=== PATIENT | female | born 1935 | race American Indian/Alaskan Native ===

== ENCOUNTER → 2017-08-19 | Outpatient (CLI) | payer OTHER ==
[~2017-08-19] MED LIST: ALBU90OI INH; ALBU90OI6 INH; ALPR.25 PO; Aspirin EC81 MG PO; Bumetanide0.5 MG PO; CALCAVITD PO; Diovan320 MG PO; FURO40 PO; Flonase 0.05% N16 GM; LOVA40 PO; METO25ER PO; MIRT15 PO; Micro-K10 MEQ; Motion Sickness25 M1 PO; POTCHL10ER PO; Percocet 5-3251 EACH PO; Prozac20 MG; STOOL SOFTENER100 MG PO; VALS80 PO; VITAMIN D-32000 UNI1 PO; VITAMIN D35000 UNIT PO; Zofran Odt4 MG SL
[2017-08-19 11:25] LABS: Hematocrit 42.5 % (33.0-51.0); Hemoglobin 13.6 g/dL (11.5-16.0)
[2017-08-19 12:38] LABS: Albumin, Blood 3.4 g/dL (3.4-5.0); Anion Gap 7 mmol/L (6-16); Blood Urea Nitrogen 28 mg/dL (8-24); Bun/Creatinine Ratio 14.9 (12.0-20.0); CO2, Blood 29 mmol/L (21-32); Calcium, Blood 10.3 mg/dL (8.5-10.1); Chloride, Blood 105 mmol/L (98-108); Creatinine, Blood 1.88 mg/dL (0.40-1.00); Glomerular Filtration Rate 27 (60-); Glucose, Blood 116 mg/dL (70-99); Phosphorus, Blood 3.2 mg/dL (2.5-4.9); Potassium, Blood 3.9 mmol/L (3.5-5.5); Sodium, Blood 141 mmol/L (136-145)
== END ==
LOC: OLS 09:25
PROVIDERS: Internal Medicine
DX: D50.9 Iron deficiency anemia, unspecified (principal); D63.1 Anemia in chronic kidney disease; I10 Essential (primary) hypertension
CPT/HCPCS: 36415; 80069; 83970; 85014; 85018

== ENCOUNTER 2017-12-01 14:24 | Emergency (ER) | payer OTHER ==
[~2017-12-01] VITALS: Ht 154.9 cm; Wt 77.1 kg
[~2017-12-01 14:24] MED LIST changes: -Percocet 5-3251 EACH PO
[2017-12-01] MEDS ORDERED: Percocet 5-3251 EACH PO (16:36)
== END 2017-12-01 16:45 | disposition home or self-care (01) ==
LOC: ER 14:24
DX: M47.898 Other spondylosis, sacral and sacrococcygeal region (principal); I10 Essential (primary) hypertension; E78.00 Pure hypercholesterolemia, unspecified; F41.9 Anxiety disorder, unspecified; F17.200 Nicotine dependence, unspecified, uncomplicated; Z79.899 Other long term (current) drug therapy; Z79.82 Long term (current) use of aspirin; Z87.442 Personal history of urinary calculi
CPT/HCPCS: 73502; 99283

== ENCOUNTER → 2018-08-01 | Outpatient (CLI) | payer OTHER ==
[~2018-08-01] MED LIST changes: +Percocet 5-3251 EACH PO
== END | disposition home or self-care (01) ==
LOC: LAB SHORT 12:21 → LAB 12:21
DX: D50.9 Iron deficiency anemia, unspecified (principal)
CPT/HCPCS: 87015; 87045; 87046; 87205; 87899

== ENCOUNTER → 2018-08-23 | Outpatient (CLI) | payer OTHER ==
[2018-08-26 13:52] LABS: Stool Occult Bld Immuno 1 Negative (NEGATIVE)
== END | disposition home or self-care (01) ==
LOC: LAB SHORT 20:30 → LAB 20:30
PROVIDERS: Internal Medicine Hematology & Oncology
DX: D50.9 Iron deficiency anemia, unspecified (principal)
CPT/HCPCS: 82274

== ENCOUNTER → 2019-06-10 | Outpatient (CLI) | payer OTHER | END | disposition home or self-care (01) | LOC: LAB EV 12:00 → LAB SHORT 12:00 | DX: T14.8XXA Other injury of unspecified body region, initial encounter (principal) | CPT/HCPCS: 87081 ==

== ENCOUNTER 2019-09-25 02:09 | Day surgery (SDC) | payer OTHER ==
[2019-09-24 10:28] LABS: BASOPHILS ABSOLUTE AUTO 0.11 K/mm3 (0.00-0.23); BASOPHILS PERCENT AUTO 1 % (0-2); EOSINOPHILS ABSOLUTE AUTO 0.19 K/mm3 (0.00-0.68); EOSINOPHILS PERCENT AUTO 2 % (0-6); Hematocrit 24.6 % (33.0-51.0); IMMATURE GRAN ABSOLUTE AUTO 0.07 K/mm3 (0.00-0.10); IMMATURE GRAN PERCENT AUTO 1 % (0-1); LYMPHOCYTES PERCENT AUTO 15 % (21-46); MONOCYTES ABSOLUTE AUTO 0.94 K/mm3 (0.16-1.47); MONOCYTES PERCENT AUTO 8 % (4-13); Mean Corpuscular HGB Conc 28.5 g/dL (31.5-36.5); Mean Corpuscular Volume 91 fL (80-100); Mean Platelet Volume 9.5 fL (9.1-12.4); NEUTROPHILS ABSOLUTE AUTO 8.23 K/mm3 (1.96-9.15); NEUTROPHILS PERCENT AUTO 73 % (41-73); Platelet Count 327 K/mm3 (150-400); RDW Coefficient Variation 21.4 % (11.7-14.2); RDW Standard Deviation 57.7 fL (35.1-46.3); Red Blood Cell Count 2.69 M/mm3 (3.80-5.20); White Blood Cell Count 11.24 K/mm3 (4.00-11.30)
[~2019-09-25 02:09] MED LIST changes: +ACET500 PO; +ACTIFED; +Banophen25 MG PO; +FURO40; +IRON INFUSIONS; +LINZESS290 MCG PO; +MYLANTA TONIGH355 ML PO; +POTASSIUM CHLO10 MEQ PO; +Pepto-Bismol262 MG PO; +SERT100 PO; +TOPROL XL50 M1 PO; +VITAMIN B; +VITAMIN D35000 UNI2 PO; +Ventolin/Prove6.7 GM INH
== END 2019-09-25 12:42 | disposition home or self-care (01) ==
LOC: ATC 02:09 → EDSTATUS 07:30 → ATC 12:42
PROVIDERS: Internal Medicine Hematology & Oncology
DX: C91.11 Chronic lymphocytic leukemia of B-cell type in remission (principal); D63.0 Anemia in neoplastic disease; I10 Essential (primary) hypertension; J44.9 Chronic obstructive pulmonary disease, unspecified; F17.210 Nicotine dependence, cigarettes, uncomplicated; Z79.82 Long term (current) use of aspirin; Z79.899 Other long term (current) drug therapy; Z88.5 Allergy status to narcotic agent; Z88.6 Allergy status to analgesic agent
CPT/HCPCS: 36430; 85025; 86850; 86900; 86901; 86923; J7050; P9016

== ENCOUNTER 2019-12-17 13:44 | Day surgery (SDC) | payer OTHER | END 2019-12-17 18:12 | disposition home or self-care (01) | LOC: ATC 13:44 → EDSTATUS 13:45 → ATC 18:12 | DX: D50.9 Iron deficiency anemia, unspecified (principal); C91.10 Chronic lymphocytic leukemia of B-cell type not having achieved remission; D47.2 Monoclonal gammopathy; I10 Essential (primary) hypertension; J44.9 Chronic obstructive pulmonary disease, unspecified; F17.210 Nicotine dependence, cigarettes, uncomplicated; Z79.82 Long term (current) use of aspirin; Z79.899 Other long term (current) drug therapy; Z88.5 Allergy status to narcotic agent | CPT/HCPCS: 36430; 86850; 86900; 86901; 86923; J7050; P9016 ==

== ENCOUNTER → 2019-12-31 | Outpatient (CLI) | payer OTHER ==
[2019-12-31 14:14] LABS: BASOPHILS ABSOLUTE AUTO 0.13 K/mm3 (0.00-0.23); BASOPHILS PERCENT AUTO 2 % (0-2); EOSINOPHILS ABSOLUTE AUTO 0.17 K/mm3 (0.00-0.68); EOSINOPHILS PERCENT AUTO 2 % (0-6); Hematocrit 24.9 % (33.0-51.0); Hemoglobin 6.9 g/dL (11.5-16.0); IMMATURE GRAN ABSOLUTE AUTO 0.04 K/mm3 (0.00-0.10); IMMATURE GRAN PERCENT AUTO 1 % (0-1); LYMPHOCYTES ABSOLUTE AUTO 1.35 K/mm3 (0.84-5.20); LYMPHOCYTES PERCENT AUTO 16 % (21-46); MONOCYTES ABSOLUTE AUTO 0.84 K/mm3 (0.16-1.47); MONOCYTES PERCENT AUTO 10 % (4-13); Mean Corpuscular HGB 27.3 pg (26.0-34.0); Mean Corpuscular HGB Conc 27.7 g/dL (31.5-36.5); Mean Corpuscular Volume 98 fL (80-100); Mean Platelet Volume 10.2 fL (9.1-12.4); NEUTROPHILS ABSOLUTE AUTO 6.15 K/mm3 (1.96-9.15); NEUTROPHILS PERCENT AUTO 71 % (41-73); Platelet Count 322 K/mm3 (150-400); RDW Coefficient Variation 23.1 % (11.7-14.2); RDW Standard Deviation 81.8 fL (35.1-46.3); Red Blood Cell Count 2.53 M/mm3 (3.80-5.20); White Blood Cell Count 8.68 K/mm3 (4.00-11.30)
== END | disposition home or self-care (01) ==
LOC: LAB 10:56 → LAB SHORT 10:56
PROVIDERS: Registered Nurse Oncology
DX: D50.9 Iron deficiency anemia, unspecified (principal)
CPT/HCPCS: 85025

== ENCOUNTER 2020-04-06 08:38 | Day surgery (SDC) | payer OTHER ==
[~2020-04-06] VITALS: Ht 157.5 cm; Wt 70.3 kg
[~2020-04-06 08:38] MED LIST changes: +POTCHL20ER PO
--- NOTE | 2020-04-06 12:40 | NUR ---
04/06/20 1240 Liya Cullen LATE ENTRY PATIENT REFUSED MULTIPLE OFFERS OF PO FLUIDS.
== END 2020-04-06 11:56 | disposition home or self-care (01) ==
LOC: ORSCSDS 08:38
PROVIDERS: Internal Medicine Gastroenterology
PROC: 0DB78ZX Excision of Stomach, Pylorus, Via Natural or Artificial Opening Endoscopic, Diagnostic (ICD-10-PCS; principal; 2020-04-06 10:00)
PROC: 0D5E8ZZ Destruction of Large Intestine, Via Natural or Artificial Opening Endoscopic (ICD-10-PCS; principal; 2020-04-06 10:00)
PROC: 0D568ZZ Destruction of Stomach, Via Natural or Artificial Opening Endoscopic (ICD-10-PCS; principal; 2020-04-06 10:00)
PROC: 0DBM8ZX Excision of Descending Colon, Via Natural or Artificial Opening Endoscopic, Diagnostic (ICD-10-PCS; principal; 2020-04-06 10:00)
PROC: 0DBN8ZX Excision of Sigmoid Colon, Via Natural or Artificial Opening Endoscopic, Diagnostic (ICD-10-PCS; principal; 2020-04-06 10:00)
DX: D50.9 Iron deficiency anemia, unspecified (principal); K59.00 Constipation, unspecified; D12.4 Benign neoplasm of descending colon; D12.5 Benign neoplasm of sigmoid colon; K57.30 Diverticulosis of large intestine without perforation or abscess without bleeding; K29.70 Gastritis, unspecified, without bleeding; K64.8 Other hemorrhoids; R13.14 Dysphagia, pharyngoesophageal phase; K55.20 Angiodysplasia of colon without hemorrhage; I10 Essential (primary) hypertension; I25.10 Atherosclerotic heart disease of native coronary artery without angina pectoris; E78.5 Hyperlipidemia, unspecified; I48.91 Unspecified atrial fibrillation; J44.9 Chronic obstructive pulmonary disease, unspecified; G47.33 Obstructive sleep apnea (adult) (pediatric); N18.3 Chronic kidney disease, stage 3 (moderate); R73.03 Prediabetes; Z79.899 Other long term (current) drug therapy; Z79.82 Long term (current) use of aspirin; Z95.0 Presence of cardiac pacemaker
CPT/HCPCS: 87081; 88305; J2704; J7120

== ENCOUNTER → 2020-05-01 | Outpatient (CLI) | payer OTHER ==
[~2020-05-01] MED LIST changes: +OMEP20ER PO; +SALM50IP INH
[2020-05-03 14:00] LABS: Stool Occult Bld Immuno 1 Positive (NEGATIVE); Stool Occult Bld Immuno 2 Positive (NEGATIVE)
== END | disposition home or self-care (01) ==
LOC: LAB SHORT 09:00 → LAB EV 09:00
PROVIDERS: Internal Medicine Gastroenterology
DX: D50.9 Iron deficiency anemia, unspecified (principal)
CPT/HCPCS: 82274

== ENCOUNTER 2020-05-05 10:28 | Day surgery (SDC) | payer OTHER ==
[~2020-05-05] VITALS: Ht 154.9 cm; Wt 76.9 kg
[~2020-05-05 10:28] MED LIST changes: -OMEP20ER PO; -SALM50IP INH
[2020-05-05] MEDS ORDERED: OMEP20ER PO (13:08)
--- NOTE | 2020-05-05 17:36 | NUR ---
PT RECEIVED 2 UNITS PRBC, TOLERATED WELL, NO REACTION. DISCHARGED VIA W/C WITH DAUGHTER.
[2020-05-06] MEDS ORDERED: SALM50IP INH (11:34)
== END 2020-05-05 17:39 | disposition home or self-care (01) ==
LOC: TRN 10:28 → MEDS 10:28 → TRN 17:39
PROVIDERS: Internal Medicine Gastroenterology
DX: D50.9 Iron deficiency anemia, unspecified (principal); J44.9 Chronic obstructive pulmonary disease, unspecified; F17.210 Nicotine dependence, cigarettes, uncomplicated; Z20.828 Contact with and (suspected) exposure to other viral communicable diseases; Z79.899 Other long term (current) drug therapy
CPT/HCPCS: 36415; 36430; 86850; 86900; 86901; 86923; J2704; J7050; J7120; P9016; U0002

== ENCOUNTER 2020-05-06 11:08 | Day surgery (SDC) | payer OTHER ==
[~2020-05-06] VITALS: Ht 154.9 cm; Wt 76.9 kg
[~2020-05-06 11:08] MED LIST changes: +OMEP20ER PO
[2020-05-06] MEDS ORDERED: SALM50IP INH (11:34)
--- NOTE | 2020-05-06 12:14 | NUR ---
Ambulatory in Day Surgery. History, Chart, Medications and Allergies reviewed before start of procedure.Lungs clear T/O to Auscultation. Patient confirms NPO status and agrees with scheduled surgery. Pre-Op teaching done. Pt verbalizes understanding. Patient States Post-Procedure ride home has been arranged.
--- NOTE | 2020-05-06 12:20 | NUR ---
05/06/20 1220 LYNSEY POPE History, Chart, Medications and Allergies reviewed before start of procedure. 3-LEAD EKG REVIEWED WITH PHYSICIAN PRIOR TO START OF PROCEDURE. O2 VIA N/C INTACT THROUGHOUT SEDATION/PROCEDURE. MONITOR INTACT WITH CONTINUOUS PULSE OXIMETRY AND INTERMITTENT BP. MAC WITH DR. SHAY.
--- NOTE | 2020-05-06 13:03 | NUR ---
EXECUTIVE RELATIONS SPECIALIST DOWN TO DRAW BLOOD. DR. ADRIAN AT BEDSIDE TALKING WITH PT AND FAMILY.
== END 2020-05-06 13:16 | disposition home or self-care (01) ==
LOC: ORSCMMR 11:08 → ORD 11:08 → ORSCMMR 11:09 → ORD 13:16
PROVIDERS: Internal Medicine Gastroenterology
PROC: 0W3P8ZZ Control Bleeding in Gastrointestinal Tract, Via Natural or Artificial Opening Endoscopic (ICD-10-PCS; principal; 2020-05-06 09:30)
DX: K31.811 Angiodysplasia of stomach and duodenum with bleeding (principal); D50.9 Iron deficiency anemia, unspecified; J44.9 Chronic obstructive pulmonary disease, unspecified; N18.9 Chronic kidney disease, unspecified; I25.10 Atherosclerotic heart disease of native coronary artery without angina pectoris; Z95.0 Presence of cardiac pacemaker; F17.210 Nicotine dependence, cigarettes, uncomplicated; Z79.899 Other long term (current) drug therapy
CPT/HCPCS: 36415; 85014; 93005; 93010; J2704; J7120

== ENCOUNTER 2020-08-09 09:02 | Day surgery (SDC) | payer OTHER ==
[2020-08-08 13:46] LABS: BASOPHILS ABSOLUTE AUTO 0.08 K/mm3 (0.00-0.23); BASOPHILS PERCENT AUTO 1 % (0-2); EOSINOPHILS ABSOLUTE AUTO 0.14 K/mm3 (0.00-0.68); EOSINOPHILS PERCENT AUTO 2 % (0-6); Hematocrit 23.6 % (33.0-51.0); Hemoglobin 6.9 g/dL (11.5-16.0); IMMATURE GRAN ABSOLUTE AUTO 0.05 K/mm3 (0.00-0.10); IMMATURE GRAN PERCENT AUTO 1 % (0-1); LYMPHOCYTES ABSOLUTE AUTO 1.05 K/mm3 (0.84-5.20); LYMPHOCYTES PERCENT AUTO 12 % (21-46); MONOCYTES ABSOLUTE AUTO 0.78 K/mm3 (0.16-1.47); MONOCYTES PERCENT AUTO 9 % (4-13); Mean Corpuscular HGB 26.2 pg (26.0-34.0); Mean Corpuscular HGB Conc 29.2 g/dL (31.5-36.5); Mean Corpuscular Volume 90 fL (80-100); Mean Platelet Volume 10.1 fL (9.1-12.4); NEUTROPHILS ABSOLUTE AUTO 6.69 K/mm3 (1.96-9.15); NEUTROPHILS PERCENT AUTO 76 % (41-73); NRBC ABSOLUTE 0.02 K/mm3 (0.00-0.02); NRBC Auto 0.2 /100 WBC (0.0-0.2); Platelet Count 274 K/mm3 (150-400); RDW Coefficient Variation 16.4 % (11.7-14.2); RDW Standard Deviation 53.5 fL (35.1-46.3); Red Blood Cell Count 2.63 M/mm3 (3.80-5.20); White Blood Cell Count 8.79 K/mm3 (4.00-11.30)
[2020-08-08 13:55] LABS: Percent Saturation 3.1 % (15.0-50.0)
[~2020-08-09 09:02] MED LIST changes: +SALM50IP INH
[2020-08-09] MEDS ORDERED: OMEP20ER PO (09:34)
--- NOTE | 2020-08-09 11:56 | NUR ---
PT WITH EXPIRTORY WHEEZES AFTER TRANSFUSION. CLEARED WITH COUGH. PT HAS COPD, DENIES SOB. O2 SAT 100% ON RA. ADVISED TO SEEK MEDICAL HELP IF SHE DEVELOPES SOB.
== END 2020-08-09 11:45 | disposition home or self-care (01) ==
LOC: ATC 09:02 → EDSTATUS 08-03 11:15 → LAB FUT 08-03 11:15
PROVIDERS: Registered Nurse Oncology
PROC: 30233N1 Transfusion of Nonautologous Red Blood Cells into Peripheral Vein, Percutaneous Approach (ICD-10-PCS; principal; 2020-08-09)
DX: C91.11 Chronic lymphocytic leukemia of B-cell type in remission (principal); D50.9 Iron deficiency anemia, unspecified; C50.811 Malignant neoplasm of overlapping sites of right female breast; D47.2 Monoclonal gammopathy; J44.9 Chronic obstructive pulmonary disease, unspecified; I10 Essential (primary) hypertension; F17.200 Nicotine dependence, unspecified, uncomplicated; Z79.82 Long term (current) use of aspirin; Z79.899 Other long term (current) drug therapy; Z88.5 Allergy status to narcotic agent; Z79.51 Long term (current) use of inhaled steroids; Z20.828 Contact with and (suspected) exposure to other viral communicable diseases
CPT/HCPCS: 36415; 36430; 82728; 83540; 83550; 85025; 86850; 86900; 86901; 86923; J7050; P9016

== ENCOUNTER 2021-01-19 13:51 | Emergency (ER) | payer MEDICARE ==
[~2021-01-19] VITALS: Ht 157.5 cm; Wt 71.2 kg
[2021-01-19 14:40] LABS: PCO2 Arterial 45.4 mmHg (35-45); PO2 Arterial 66.1 mmHg (80-100); pH Blood Arterial 7.34 (7.35-7.45)
== END 2021-01-19 16:21 | disposition home or self-care (01) ==
LOC: ER 13:51
PROVIDERS: Physician Assistant
DX: T59.811A Toxic effect of smoke, accidental (unintentional), initial encounter (principal); I10 Essential (primary) hypertension; E78.5 Hyperlipidemia, unspecified; F17.200 Nicotine dependence, unspecified, uncomplicated; Z79.899 Other long term (current) drug therapy
CPT/HCPCS: 36415; 36600; 71045; 82375; 82803; 93005; 93010; 99284-25

== ENCOUNTER 2021-03-08 12:29 | Emergency (ER) | payer MEDICARE ==
[~2021-03-08] VITALS: Ht 154.9 cm; Wt 70.3 kg
[2021-03-08 13:00] LABS: BASOPHILS ABSOLUTE AUTO 0.08 K/mm3 (0.00-0.23); BASOPHILS PERCENT AUTO 1 % (0-2); EOSINOPHILS ABSOLUTE AUTO 0.17 K/mm3 (0.00-0.68); EOSINOPHILS PERCENT AUTO 2 % (0-6); Hematocrit 27.8 % (33.0-51.0); Hemoglobin 8.3 g/dL (11.5-16.0); IMMATURE GRAN PERCENT AUTO 1 % (0-1); LYMPHOCYTES ABSOLUTE AUTO 0.79 K/mm3 (0.84-5.20); LYMPHOCYTES PERCENT AUTO 10 % (21-46); MONOCYTES PERCENT AUTO 9 % (4-13); Mean Corpuscular HGB 26.3 pg (26.0-34.0); Mean Corpuscular HGB Conc 29.9 g/dL (31.5-36.5); Mean Corpuscular Volume 88 fL (80-100); Mean Platelet Volume 9.2 fL (9.1-12.4); NEUTROPHILS PERCENT AUTO 77 % (41-73); Platelet Count 306 K/mm3 (150-400); RDW Coefficient Variation 17.1 % (11.7-14.2); RDW Standard Deviation 54.6 fL (35.1-46.3); Red Blood Cell Count 3.15 M/mm3 (3.80-5.20); White Blood Cell Count 7.94 K/mm3 (4.00-11.30)
[2021-03-08 13:19] LABS: Albumin, Blood 3.3 g/dL (3.4-5.0); Albumin/Globulin Ratio 0.8 (0.8-1.8); Bilirubin, Total 0.4 mg/dL (0.1-1.0); Bun/Creatinine Ratio 15.7 (12.0-20.0); Calcium, Blood 9.2 mg/dL (8.5-10.1); Creatinine, Blood 2.35 mg/dL (0.40-1.00); Globulin, Blood 4.2 g/dL (2.2-4.0); Potassium, Blood 4.2 mmol/L (3.5-5.5); Total Protein, Blood 7.5 g/dL (6.4-8.2)
[2021-03-08 15:09] LABS: Source, Urine Clean Catch
[2021-03-08 15:14] LABS: Bilirubin, Urine Neg (Neg); Blood, Urine Neg (Neg); Color, Urine Yellow (P-Yellow); Glucose Qualitative, Urine Neg (Neg); Ketones, Urine Neg (Neg); Leukocyte Esterase, Urine Neg (Neg); Nitrite, Urine Neg (Neg); Protein, Urine Neg (Neg); Specific Gravity, Urine 1.015 (1.003-1.022); Urobilinogen, Urine NORM (Normal)
[2021-03-08 15:27] LABS: Appearance, Urine Clear (Clear)
== END 2021-03-08 16:25 | disposition left against medical advice (07) ==
LOC: ER 12:29
PROVIDERS: Emergency Medicine
DX: R10.9 Unspecified abdominal pain (principal); Z53.21 Procedure and treatment not carried out due to patient leaving prior to being seen by health care provider
CPT/HCPCS: 36415; 80053; 81003; 85025

== ENCOUNTER 2021-03-20 21:14 | Emergency (ER) | payer MEDICARE ==
[~2021-03-20] VITALS: Ht 154.9 cm; Wt 70.3 kg
[2021-03-20 22:34] LABS: BASOPHILS ABSOLUTE AUTO 0.07 K/mm3 (0.00-0.23); BASOPHILS PERCENT AUTO 1 % (0-2); EOSINOPHILS ABSOLUTE AUTO 0.08 K/mm3 (0.00-0.68); EOSINOPHILS PERCENT AUTO 1 % (0-6); Hematocrit 33.7 % (33.0-51.0); Hemoglobin 10.2 g/dL (11.5-16.0); IMMATURE GRAN ABSOLUTE AUTO 0.02 K/mm3 (0.00-0.10); IMMATURE GRAN PERCENT AUTO 0 % (0-1); LYMPHOCYTES ABSOLUTE AUTO 0.97 K/mm3 (0.84-5.20); LYMPHOCYTES PERCENT AUTO 16 % (21-46); MONOCYTES ABSOLUTE AUTO 0.75 K/mm3 (0.16-1.47); MONOCYTES PERCENT AUTO 12 % (4-13); Mean Corpuscular HGB 27.3 pg (26.0-34.0); Mean Corpuscular HGB Conc 30.3 g/dL (31.5-36.5); Mean Corpuscular Volume 90 fL (80-100); Mean Platelet Volume 10.1 fL (9.1-12.4); NEUTROPHILS PERCENT AUTO 70 % (41-73); Platelet Count 293 K/mm3 (150-400); RDW Coefficient Variation 19.9 % (11.7-14.2); RDW Standard Deviation 63.8 fL (35.1-46.3); Red Blood Cell Count 3.74 M/mm3 (3.80-5.20); White Blood Cell Count 6.19 K/mm3 (4.00-11.30)
[2021-03-20 22:54] LABS: Albumin, Blood 3.3 g/dL (3.4-5.0); Albumin/Globulin Ratio 0.8 (0.8-1.8); Bilirubin, Total 0.4 mg/dL (0.1-1.0); Bun/Creatinine Ratio 17.6 (12.0-20.0); Calcium, Blood 9.4 mg/dL (8.5-10.1); Creatinine, Blood 2.21 mg/dL (0.40-1.00); Globulin, Blood 4.3 g/dL (2.2-4.0); Potassium, Blood 4.2 mmol/L (3.5-5.5); Total Protein, Blood 7.6 g/dL (6.4-8.2)
[2021-03-21 00:20] LABS: Source, Urine Clean Catch
[2021-03-21 00:30] LABS: Bilirubin, Urine Neg (Neg); Blood, Urine Neg (Neg); Glucose Qualitative, Urine Neg (Neg); Ketones, Urine Neg (Neg); Leukocyte Esterase, Urine Neg (Neg); Nitrite, Urine Neg (Neg); Protein, Urine 1+ (Neg); Specific Gravity, Urine 1.015 (1.003-1.022); Urobilinogen, Urine NORM (Normal)
[2021-03-21 00:32] LABS: Appearance, Urine Clear (Clear); Color, Urine Yellow (P-Yellow)
[2021-03-21] MEDS ORDERED: CYCL10 PO (02:25)
== END 2021-03-21 03:14 | disposition home or self-care (01) ==
LOC: ER 21:14
PROVIDERS: Physician Assistant
DX: M54.16 Radiculopathy, lumbar region (principal); E86.0 Dehydration; F17.200 Nicotine dependence, unspecified, uncomplicated; I10 Essential (primary) hypertension; R11.0 Nausea; R30.0 Dysuria; Z95.1 Presence of aortocoronary bypass graft; Z79.899 Other long term (current) drug therapy; Z79.82 Long term (current) use of aspirin
CPT/HCPCS: 74176; 80053; 83690; 85025; 93005; 93010; 96374; 96375; 99284-25; A9270; J1885; J2270; J2405; J7030; P9612

== ENCOUNTER 2021-08-18 11:16 | Inpatient (IN) | payer MEDICARE ==
[~2021-08-18] VITALS: Ht 157.5 cm; Wt 62.2 kg
[~2021-08-18 11:16] MED LIST changes: +CYCL10 PO
[2021-08-18 12:27] LABS: BASOPHILS ABSOLUTE AUTO 0.04 K/mm3 (0.00-0.23); BASOPHILS PERCENT AUTO 1 % (0-2); EOSINOPHILS ABSOLUTE AUTO 0.01 K/mm3 (0.00-0.68); EOSINOPHILS PERCENT AUTO 0 % (0-6); Hematocrit 38.3 % (33.0-51.0); Hemoglobin 11.5 g/dL (11.5-16.0); IMMATURE GRAN ABSOLUTE AUTO 0.03 K/mm3 (0.00-0.10); IMMATURE GRAN PERCENT AUTO 0 % (0-1); LYMPHOCYTES PERCENT AUTO 10 % (21-46); MONOCYTES ABSOLUTE AUTO 0.78 K/mm3 (0.16-1.47); MONOCYTES PERCENT AUTO 11 % (4-13); Mean Corpuscular HGB 27.2 pg (26.0-34.0); Mean Corpuscular Volume 91 fL (80-100); Mean Platelet Volume 11.3 fL (9.1-12.4); NEUTROPHILS ABSOLUTE AUTO 5.72 K/mm3 (1.96-9.15); NEUTROPHILS PERCENT AUTO 79 % (41-73); NRBC ABSOLUTE 0.02 K/mm3 (0.00-0.02); NRBC Auto 0.3 /100 WBC (0.0-0.2); Platelet Count 180 K/mm3 (150-400); RDW Coefficient Variation 15.9 % (11.7-14.2); RDW Standard Deviation 51.8 fL (35.1-46.3); Red Blood Cell Count 4.23 M/mm3 (3.80-5.20); White Blood Cell Count 7.28 K/mm3 (4.00-11.30)
[2021-08-18 12:49] LABS: Albumin/Globulin Ratio 0.8 (0.8-1.8); Bilirubin, Total 0.9 mg/dL (0.1-1.0); Bun/Creatinine Ratio 16.9 (12.0-20.0); Calcium, Blood 9.1 mg/dL (8.5-10.1); Creatinine, Blood 1.66 mg/dL (0.40-1.00); Potassium, Blood 3.4 mmol/L (3.5-5.5); Troponin I 0.166 ng/mL (0.000-0.040)
[2021-08-18] MEDS ORDERED: GUAI600T33 PO (14:30)
[2021-08-18 14:55] LABS: Source, Urine Clean Catch
[2021-08-18 15:04] LABS: Bilirubin, Urine Neg (Neg); Blood, Urine Neg (Neg); Color, Urine Amber (P-Yellow); Glucose Qualitative, Urine Neg (Neg); Ketones, Urine Neg (Neg); Leukocyte Esterase, Urine 1+ (Neg); Nitrite, Urine Neg (Neg); Protein, Urine 2+ (Neg); Urobilinogen, Urine 1+ (Normal)
[2021-08-18 15:26] LABS: Appearance, Urine Hazy (Clear)
[2021-08-18 15:27] LABS: Amorphous Mod (0-Heavy); Bacteria Mod /hpf; Red Blood Cells, Urine Not Seen /hpf (0-2); Squamous Epithelial Cells Rare /hpf (Few)
[2021-08-18 21:24] LABS: Source, Urine Catheter
[2021-08-18 21:28] LABS: Bilirubin, Urine Neg (Neg); Blood, Urine Neg (Neg); Glucose Qualitative, Urine Neg (Neg); Ketones, Urine Neg (Neg); Leukocyte Esterase, Urine Neg (Neg); Nitrite, Urine Neg (Neg); Protein, Urine Neg (Neg); Specific Gravity, Urine 1.015 (1.003-1.022); Urobilinogen, Urine NORM (Normal)
[2021-08-18 21:36] LABS: Appearance, Urine Clear (Clear); Color, Urine Yellow (P-Yellow)
[2021-08-19 09:30] LABS: International Normalized Ratio 1.15
[2021-08-19 09:40] LABS: Influenza A, PCR NEGATIVE (NEGATIVE); Influenza B, PCR NEGATIVE (NEGATIVE); Resp Syncytial Virus, PCR NEGATIVE (NEGATIVE); SARS-Cov-2 (COVID-19) PCR, MMC NEGATIVE (NEGATIVE)
[2021-08-19 15:28] LABS: Automated BF WBC Count 0.051 K/mm3 (0-999); Body Fluid WBC Count 51 /mm3 (0-999)
[2021-08-19 15:40] LABS: Protein, Body Fluid 1.9 g/dL
[2021-08-19 16:09] LABS: Appearance, Body Fluid Clear (Clear); Color, Body Fluid L Yellow (None-Yellow)
[2021-08-19 16:38] LABS: RBC Count, Body Fluid 79 /mm3 (0-0)
--- NOTE | 2021-08-19 17:01 | NUR ---
NO ACUTE CHANGES. PT IS AOX4 AND COOPERATIVE OF CARE. PT HAS BEEN VERY TIRED AND SLEEPS A LOT. PT ABLE TO GET UP AND WALK WITH GAITBELT AND WALKER WITH ONE PERSON ASSIST. DOMINGO IS PAITENT AND RUNNING. NO DISTRESS NOTEDD AT THIS TIME WILL CONTINUE TO MONITOR.
[2021-08-19 17:13] LABS: Total Cell Count, Body Fluid 100
[2021-08-20 03:39] LABS: BASOPHILS ABSOLUTE AUTO 0.04 K/mm3 (0.00-0.23); BASOPHILS PERCENT AUTO 1 % (0-2); EOSINOPHILS ABSOLUTE AUTO 0.03 K/mm3 (0.00-0.68); EOSINOPHILS PERCENT AUTO 0 % (0-6); Hematocrit 37.5 % (33.0-51.0); Hemoglobin 11.3 g/dL (11.5-16.0); IMMATURE GRAN ABSOLUTE AUTO 0.02 K/mm3 (0.00-0.10); IMMATURE GRAN PERCENT AUTO 0 % (0-1); LYMPHOCYTES ABSOLUTE AUTO 0.62 K/mm3 (0.84-5.20); LYMPHOCYTES PERCENT AUTO 8 % (21-46); MONOCYTES PERCENT AUTO 11 % (4-13); Mean Corpuscular HGB 27.3 pg (26.0-34.0); Mean Corpuscular HGB Conc 30.1 g/dL (31.5-36.5); Mean Corpuscular Volume 91 fL (80-100); Mean Platelet Volume 10.2 fL (9.1-12.4); NEUTROPHILS ABSOLUTE AUTO 6.27 K/mm3 (1.96-9.15); NEUTROPHILS PERCENT AUTO 80 % (41-73); Platelet Count 157 K/mm3 (150-400); RDW Standard Deviation 53.4 fL (35.1-46.3); Red Blood Cell Count 4.14 M/mm3 (3.80-5.20); White Blood Cell Count 7.88 K/mm3 (4.00-11.30)
[2021-08-20 03:55] LABS: Bun/Creatinine Ratio 21.5 (12.0-20.0); Calcium, Blood 8.7 mg/dL (8.5-10.1); Creatinine, Blood 1.44 mg/dL (0.40-1.00); Potassium, Blood 2.9 mmol/L (3.5-5.5)
--- NOTE | 2021-08-20 06:40 | NUR ---
PT IS ALERT TO SELF. VERY [place]. LEGALLY BLIND. THROUGH THE NIGHT PULLING LINES; TELE LEAD AND STABELIZER OF DOMINGO. DENIES PAIN. TELE: PACED 85
--- NOTE | 2021-08-20 17:05 | NUR ---
Met with pt's dtr, Renetta, and discussed hospice option. Renetta reports that they would like to transition to comfort care while Carissa is in the hospital. Answered questions re: hospice. Received a call back from Shruthi. Discussed comfort care and hospice at home vs. a facility. Shruthi is in agreement with beginning comfort care. She is open to leaving some of pt's routine medications ordered, however she states that if her mom doesn't want to take them she will support her mom's choice. Shruthi is in agreement with stopping the subcutaneous heparin. Answered questions re: hospice explained services avaialable. Carissa lives with Shruthi and her family. Shruthi is trying to decide what would be best for her mom and her family. She has twin 15 year old boys and has some concern about how they will react to their grandmother becoming sicker. Discussed support services available with hospice. Shruthi states that they have been caring for her mom for several weeks without support and are exhausted. Shruthi will plan to visit tomorrow and to get in contact with PC and CM for a list of facilities that may be able to take Carissa with hospice services. Shruthi states that they have the availabitliy to private pay for a facility if needed. Updated nursing. Comfort care orders placed per telephone request of Dr. Coyne. PC to follow up with CM and family tomorrow.
--- NOTE | 2021-08-20 17:26 | NUR ---
PT HAS BEEN AOX2-3 AND PROGRESSIVELY GETTING WEAKER. PT HAS NOT BEEN STAYING AWAKE LONG AND HAS BEEN SLEEPING MOST OF THE DAY. PT IS STILL A ONE PERSON TO BEDSIDE COMODE. PT IS IMPULSIVE AND NEEDS BED ALARM IN PLACE. FAMILY HAS HAD A MEETING WITH PALLIATIVE CARE AND DECISION WAS MADE TO GO COMFORT CARE. WILL CONTINUE TO MONITOR.
--- NOTE | 2021-08-21 04:28 | NUR ---
PATIENT WAS ALERT AND ORIENTED X2, BP WAS A BIT HIGH AT THE BEGINING OF THE SHIRT BUT IS TREANDING DOWN. PAIN COMPLAINED OF PAIN WHEN EVER SHE WAS TOUCHED. PATIENT TRIED TO GET OUT OF BED WITH OUT ASSISTS BUT WAS REDIRECTED. PATIENT DID NOT SLEEP MUCH. CALL LIGHT WITH IN REACH AND BED DOWN TO THE LOWEST POSITION WITH THE ALARN ON. WILL CONTINUE TO MONITOR UNTILL HAND OFF.
--- NOTE | 2021-08-21 13:02 | NUR ---
pt comfortable, met with daughter and post acute care nurse to facilitate finding a group home. review of hospice companies and they want to stay with [facility].
--- NOTE | 2021-08-21 14:30 | NUR ---
Received referral from nurse healthcare translator (Federico Pittman) on 08/21/2021. Patient is to discharge with orders for hospice and family elected [facility]. Gathered supporting documentation for referral (face sheet, labs, imaging, progress notes, palliative care note, and H&P) and sent to [facility] graduate intern (Femi Swenson) for review of hospice appropriateness and ability to accept patient onto service post discharge. Will await further information from hospice graduate intern regarding the above. Kimi Gonzalez Referral Liaison
--- NOTE | 2021-08-21 15:36 | NUR ---
Received notification from [facility] Hospice consulting practice director (Femi Swenson) that patient is hospice appropriate and able to be accepted onto service post discharge. Will attempt to meet with patient's family today to further discuss the above. Will continue to monitor and follow for discharge. Kimi Gonzalez Referral Liaison
--- NOTE | 2021-08-21 16:22 | NUR ---
NO SIGNS OF DISTRESS. NO COMPLAINTS OF PAIN
--- NOTE | 2021-08-21 17:35 | NUR ---
PATIENT IS ALERT AND ORIENTED TO FAMILY, PLACE AND FOLLOWING DIRECTIONS. SHE IS ON COMFORT CARE. HER DAUGHTER WAS AT THE BEDSIDE THIS MORNING. PATIENT HAS A POOR APPETITE AND REQUIRES A LOT OF ENCOURAGEMENT TO EAT. SHE IS 2PA WITH [facility] AND FWW TO [facility]. SHE HAD A BEDBATH TODAY. NO COMPLAINTS OR SIGNS OF PAIN. BED ALARM IS ON. DOMINGO IS IN PLACE. WILL CONTINUE TO MONITOR
--- NOTE | 2021-08-21 18:35 | NUR ---
PATIENT IS MORE AWAKE THIS EVENING. SHE ATE SOME APPLESAUCE AND CHOCOLATE PUDDING FOR DINNER.
--- NOTE | 2021-08-22 05:32 | NUR ---
PATIENT WAS ALERT AND ORIENTED X3, STABLE VITAL SIGNS, NO ACUTE CHANGES. PATIENT COMPLAINED OF PAIN AND WAS TREATED WITH TYLENOL. PATIENT SLEPT MOST OF THE NIGHT. CALL LIGHT WITHIN REACH AND BED DOWN TO THE LOWEST POSITION. WILL CONTINUE TO MONITOR UNTIL HAND OFF.
--- NOTE | 2021-08-22 11:16 | NUR ---
Met with patient's daughter (Shruthi León) to further discuss hospice services and the election of [facility]. Patient's daughter is agreeable to the above. Discussed what hospice is (reserved for patients with a terminal diagnosis with life expectancy of 6 months or less). Discussed that some patients exceed the 6 months expectancy and stay on service and some patients stabilize and come off hospice. Patient's daughter verbalized understanding of the above. Discussed with patient's daughter that hospice service focuses on quality of life at the end of life and that rather than measuring the quantity of days, the quality of those days would be measured. Discussed with patient's daughter that with hospice service the goal would be to keep the patient out of the hospital and comfortable by managing symptoms at home. Patient's daughter verbalized understanding. Discussed the people, prescriptions, and equipment of hospice. People- discussed the team of people and their roles (RNs, chaplains, therapists, LCSWs, CNAs, and volunteers) that would be there to support not only the patient but also their family during this time. Explained to the patient's daughter that the team would be custom tailored to the patient and family's needs during this time. Patient's daughter verbalized understanding. Prescriptions- discussed that we utilize a mail order pharmacy ([email or web address]) to provide medications related to the hospice diagnosis and for symptom management. All other medications that patient chose to stay on would be patient's and/or patient's family's responsibility to provide and pay for. Patient's daughter verbalized understanding. Discussed that upon discharge patient would be given three prescriptions, one for morphine 20mg/mL #30mL (0.25mL - 1mL PO/SL Q1H PRN SOB/pain), one for lorazepam 0.5mg #20 (1 - 2 PO Q4H PRN anxiety), and one for hyoscyamine 0.125mg SL tablets #30 (1 SL Q2H PRN secretions). Explained to the patient's daughter that as patient would not yet be admitted to hospice service at the time of discharge those prescriptions would be patient/patient's family's responsibility to fill and pay for. Patient's daughter verbalized understanding. Equipment- discussed with patient's daughter that we contract through [facility] to provide DME such as hospital beds, commodes, etc. to patient. At this time patient's discharge location is unknown. As such [facility] Discussed with patient's daughter that [facility] does not supply the sheets for the beds. Discussed that one of two options can be used- either a twin extra-long fitted sheet OR a hameed sized flat sheet wrapped around the pump & pad. Patient's daughter verbalized understanding. Discussed with patient's daughter that once patient was admitted onto hospice services the goal would be for them to contact us ([facility]) over contacting 911 or presenting back to the hospital/ED. Patient's daughter verbalized understanding. Explained to patient's daughter that once a discharge location was known I would arrange transportation for patient. Patient's daughter verbalized understanding. Offered a chance for patient's daughter to ask questions regarding the above of which there were none. Will continue to monitor and follow as appropriate for discharge. Kimi Gonzalez Referral Liaison
--- NOTE | 2021-08-22 14:27 | NUR ---
PT AWAKE AND DENIES PAIN, NAUSEA, ANXIETY. SHE DID NOT WANT HER IV DUE TO IT CAUSING PAIN WHEN SHE BENT HER ARM SO IV WAS REMOVED. PT DOES NOT WISH TO HAVE NEW IV PLACED AND DOES NOT WANT IV MEDICATIONS GIVEN. ORDER RECEIVED TO DC IV MEDICATIONS AND NO IV ACCESS NEEDED FROM DR. TEJEDA. PT HAS NO OTHER CONCERNS AT THIS TIME.
--- NOTE | 2021-08-22 17:28 | NUR ---
SHIFT SUMMARY: PT ON COMFORT CARE TODAY, CONTINUED TO DENY PAIN/NAUSEA/ANXIETY THROUGHOUT THE DAY. PT ABLE TO MAKE NEEDS KNOWN AT THIS TIME, ALERT, PLEASANT AND COOPERATIVE WITH CARES. DAUGHTER IN ROOM WITH PT THROUGHOUT THE DAY.
--- NOTE | 2021-08-23 04:58 | NUR ---
PATIENT WAS ALERT AND ORIENTED X2, STABLE VITAL SIGNS, NO ACUTE CHANGES, PATIENT DENIESD ANY PAIN. PATIENT SLEPT FOR MOST OF THE NIGHT. CALL LIGHT WITH IN REACH AND BED DOWN TO THE LOWEST POSITION. WILL CONTIINUE TO MONITOR UNTIL HAND OFF.
--- NOTE | 2021-08-23 17:36 | NUR ---
Pt remains appropriate for hospice, and is currently on comfort care. She is not having any increase in pain, and is eating fair. She's eating "whatever she wants", and this does please her. No changes to current care plan needed.
--- NOTE | 2021-08-24 05:03 | NUR ---
PATIENT WAS ALERT AND ORIENTED X2, COMFORT CARE, NO ACUTE CHANGES. PATIENT DENIED ANY PAIN. PATIENT DID NOT SLEEP MUCH AT NIGHT. CALL LIGTH WITH IN REACH AND BED DOWN TO THE LOWEST POSITION. WILL CONTINUE TO MONITOR UNTIL HAND OFF.
--- NOTE | 2021-08-24 16:10 | NUR ---
SHIFT SUMMARY PT HAS BEEN COMFORTQBLE IN BED NAD GETTUING UP TO TRY AND USE THE BEDSIDE COMMODE. SHE REFUSED HER MORNING MEDS AND BREAKFAST AND WAS ABLE TO EAT SOME LUNCH WITH HER DAUGHTER. TRAY CHANGES WERE MADE TO BETTER SUIT HER TASTES WITH FOOD AND TEXTURES. PT IS MEANT TO DISCHARGE TOMORROW TO A FASCILITY HOME ON HOSPICE. PT REMAINS CONFUSED, BUT KNOWS SHE IS IN THE HOSPITAL. SHE DENIES PAIN. WILL CONTINUE TO MONITOR.
--- NOTE | 2021-08-25 07:16 | NUR ---
SHIFT SUMMARY PATIENT ALERT AND ORIENTED TO SELF. HAD NO COMPLAINTS OF PAIN OR SHORTNESS OF BREATH. SLEPT ALL NIGHT. NO ACUTE ISSUES NOTED. BED IN LOWEST POSITION WITH WHEELS LOCKED AND ALARM ON. CALL LIGHT WITHIN REACH. REPORT GIVEN TO ONCOMING RN.
--- NOTE | 2021-08-25 13:20 | NUR ---
Pt continues to be appropriate with staff. Able to feed herself finger foods, and drink sips. she is pleasant and cooperative. No changes needded to are plan at this time.
--- NOTE | 2021-08-25 17:32 | NUR ---
SHIFT SUMMARY PATIENT IS ALERT AND ORIENTATED TO SELF. PATIENT HAS HAD NO COMPLAINTS OF NAUSEA, VOMITTING, SOB OR PAIN THIS SHIFT. PATIENT HAS SLEPT MOST OF SHIFT EXCEPT FOR WHEN DAUGHTER CAME TO VISIT. BED IN LOWEST POSITION, CALL LIGHT IN REACH. WILL MONITOR UNTIL SHIFT CHANGE.
--- NOTE | 2021-08-25 19:10 | NUR ---
ASSUMED CARE. AOX2. COOPERATIVE. CYRILD, WEAK. FTT. DENIES ANY NEEDS, PAIN, CONCERNS. DENIED HER DINNER TRAY SAID SHE WAS NOT HUNGRY. DAUGHTERS AT BEDSIDE OFFERING HER ANYTHING SHE WOULD WANT, STILL DENIED IT. NO COUGH OR CONGESTION. DOMINGO PATENT WITH ORANGE COLOR URINE. ABLE TO REPOSITION SELF IN BED. CALL LIGHT IS IN REACH. WILL CONTINUE TO MONITOR.
--- NOTE | 2021-08-26 10:25 | NUR ---
PATIENT ALERT AND ORIENTED X4. NEURO WNL. HISTORY OF BLINDESS. ABLE TO MAKE OUT SHAPES AND LIGHT. HARD OF HEARING. ABLE TO MOVE ALL EXTREMITIES. DENIES NUMBNESS/TINGLING. ON ROOM AIR. LUNGS SOUNDING CLEAR. BP CHECKED THIS AM FOR MORNING MEDS. MEDS GIVEN WITH APPLESAUCE. PATIENT NOT EATING MUCH. DENIES BEING HUNGRY. ONLY DRINKING DIET PEPSI. SMALL AMOUNTS OF OUTPUT. DR. AGUILA BY THIS AM, NEW ORDERS TO REMOVE DOMINGO CATH AND MONITOR URINE OUTPUT. DOMINGO REMOVED. ATTENDS CHANGED. PATIENT DENIES NEEDS AT THIS TIME. CALL LIGHT IN REACH. WILL CONTINUE TO MONITOR.
--- NOTE | 2021-08-26 10:34 | NUR ---
Pt resting in bed upon arrival. Pt requesting to have Sargent D/C otherwise no other concerns at this time. Spoke with Dr Jefferson, Primary RN Arabella and discussed case. Sargent catheter will be D/C. Palliative Care will remain available.
--- NOTE | 2021-08-26 15:28 | NUR ---
PATIENT ABLE TO AMBULATE TO BSC WITH ASSISTANCE. SMALL AMOUNT OF OUTPUT. WILL CONTINUE TO MONITOR.
--- NOTE | 2021-08-26 18:26 | NUR ---
SHIFT SUMMARY: NO ACUTE CHANGES. DAUGHTER IN TO VISIT AND HELPING PATIENT EAT. POOR APPEATITE. ABLE TO DRINK A MILKSHAKE. UP TO BEDSIDE COMMODE. ABLE TO VOID URINE POST DOMINGO REMOVAL, ALTHOUGH SMALL AMOUNTS OF OUTPUT DUE TO DECREASED INTAKE. DENIES NEEDS. SLEEPING MOST OF THE SHIFT. CALL LIGHT IN REACH. CALLING FOR BATHROOM. WILL CONTINUE TO MONITOR AND REPORT OFF.
--- NOTE | 2021-08-27 05:27 | NUR ---
SHIFT SUMMARY NO ACUTE CHANGES TO REPORT THIS SHIFT. PT HAS SLEPT OFF AND ON T/O THE NIGHT SHE DENIES PAIN. PT IS A/OX1 TO SELF AND IS VERY CONFUSED AND JUMPS OUT OF BED WITHOUT ASSISTANCE SETTING OFF ALARM. PT IS VERY UNSTEADY ON FEET. COMFORT MEASURES ONLY. COMFORT ASSESSED T/O SHIFT. PT DENIES PAIN WHEN ASKED, AND REST COMFORTABLY IN BED. PT AWAITING HOPSICE PLACEMENT AT CARE FACILITY AT THIS TIME. BED IN LOWEST POSITION, CALL LIGHT WITHIN REACH.
--- NOTE | 2021-08-27 09:35 | NUR ---
PT MEDICATED FOR PAIN
--- NOTE | 2021-08-27 17:43 | NUR ---
SHIFT SUMMARY PT AOX2; CONFUSED. AWAITING FOR PLACEMENT TO HOSPICE. DTR AT BEDSIDE TODAY. PT IS A COMFORT CARE PT. DOES NOT USES CALL LIGHT. BED ALARM IS ON. MEDICATED TYLENOLX2 FOR ELBOW PAIN. BED IS IN THE LOWEST POSITION AND CALL LIGHT WITHIN REACH.
[2021-08-28 09:39] LABS: Influenza A, PCR NEGATIVE (NEGATIVE); Influenza B, PCR NEGATIVE (NEGATIVE); Resp Syncytial Virus, PCR NEGATIVE (NEGATIVE); SARS-Cov-2 (COVID-19) PCR, MMC NEGATIVE (NEGATIVE)
--- NOTE | 2021-08-28 10:19 | NUR ---
Patient is to discharge at 1030 to [facility] with orders for hospice. Contacted [facility] ([place]) to arrange gurney transport to facility listed above. Pick-up at 1030 will be provided by the above. Faxed copy of face sheet, PCS form, and DNR status to [facility] office per protocol. Placed copies of the above in nurse line server for transport corps officer. Notified nurse daycare director (Federico Pittman), [facility] Special Education Paraeducator (Hetal Ramsey), [facility] (Mai Blanchard), Charge RNs (Opal Trevino and Brenna Dobbs), and bedside RN (Rosetta Walker) of the above. All are agreeable to the above. Requested discharge orders from hospitalist (Dr. Jefferson). Provided hard copy prescriptions for morphine and lorazepam to facility via facility discharge envelope. Copies of prescriptions faxed to [facility] ([place]) and [facility] (facility's preferred pharmacy). Faxed copies of discharge order and med list to [facility] boat dispatcher and [facility] ([facility]). Additionally discharge medication list was faxed to [facility] (facility's preferred pharmacy). No further interventions required. Kimi Gonzaelz Referral Liaison
--- NOTE | 2021-08-28 11:41 | NUR ---
PT DISCHARGE TO [facility] ON HOSPICE.DTR AT BEDSIDE GIVEN DC PACKET. NO IV. PT PAPER WITH THE DISPATCHER.TUBE TEST TECHNICIAN FAXED EVERYTHING THAT NEEDED. NO OTHER CONCERNS. GIVEN REPORT TO TAI AT [facility]
--- NOTE | 2021-08-28 13:49 | NUR ---
Per Dr. Jefferson discharge appropriate on: 08/28/21. Patient does not oppose discharge. Patient discharged to assisted living facility [facility] with [facility]. Transportation arranged by [facility]. DME: [facility] will order per assessment. [facility] will contact [facility] ([phone]) to schedule hospital discharge PCP follow up as needed. No barriers to discharge at this time.
== END 2021-08-28 11:23 | disposition hospice, home (50) | DRG 280 ==
LOC: ER 11:16 → ERHOLD 11:17 → MEDS 20:21 → ENPENDDIS 08-28 08:34 → MEDS 08-28 11:23
PROVIDERS: Family Medicine; Physician Assistant; ADMIT Internal Medicine
PROC: 0W993ZZ Drainage of Right Pleural Cavity, Percutaneous Approach (ICD-10-PCS; principal; 2021-08-19)
DX: I11.0 Hypertensive heart disease with heart failure (principal); I21.4 Non-ST elevation (NSTEMI) myocardial infarction; I50.33 Acute on chronic diastolic (congestive) heart failure; N39.0 Urinary tract infection, site not specified; J90 Pleural effusion, not elsewhere classified; Z20.822 Contact with and (suspected) exposure to COVID-19; Z66 Do not resuscitate; E78.5 Hyperlipidemia, unspecified; R62.7 Adult failure to thrive; I27.20 Pulmonary hypertension, unspecified; I08.0 Rheumatic disorders of both mitral and aortic valves; Z68.25 Body mass index [BMI] 25.0-25.9, adult; I25.10 Atherosclerotic heart disease of native coronary artery without angina pectoris; F03.90 Unspecified dementia, unspecified severity, without behavioral disturbance, psychotic disturbance, mood disturbance, and anxiety; J44.9 Chronic obstructive pulmonary disease, unspecified; F41.9 Anxiety disorder, unspecified; H54.8 Legal blindness, as defined in USA; Z88.5 Allergy status to narcotic agent; F17.210 Nicotine dependence, cigarettes, uncomplicated; Z79.82 Long term (current) use of aspirin; Z28.21 Immunization not carried out because of patient refusal; Z79.899 Other long term (current) drug therapy; Z90.49 Acquired absence of other specified parts of digestive tract; Z90.711 Acquired absence of uterus with remaining cervical stump; Z95.1 Presence of aortocoronary bypass graft; Z92.21 Personal history of antineoplastic chemotherapy
CPT/HCPCS: 0241U; 32555; 36415; 71045; 71250; 80048; 80053; 81001; 81003; 83880; 84157; 84484; 85025; 85610; 85730; 87070; 87086; 87205; 88108; 88305; 89051; 93005; 93010; 93306; 94640; 94760; 96374; 97110; 97161; 97530; 99285-25; A9270; G0378; J0696; J1644; J1940